=== PATIENT | female | born 1970 | race Caucasian/White ===

== ENCOUNTER 2021-03-26 12:50 | Emergency (ER) | payer OTHER ==
[~2021-03-26] VITALS: Ht 175.3 cm; Wt 99.3 kg
[2021-03-26 12:59] VITALS: BP 112/83
[2021-03-26] MEDS ORDERED: SODIUM CHLORIDE FLUSH 10 ML SYR IVF STA (13:54)
[2021-03-26 14:26] LABS: BASOPHILS # (AUTO) 0.1 K/uL (0.00-0.22); BASOPHILS % (AUTO) 0.8 % (0.0-2.0); EOSINOPHILS # (AUTO) 0.1 K/uL (0-0.4); EOSINOPHILS % (AUTO) 0.9 % (0.0-4.0); HEMATOCRIT 40.1 % (36-48); HEMOGLOBIN 13.4 g/dL (12.0-16.0); LYMPHOCYTES # (AUTO) 2.3 K/uL (2.5-16.5); LYMPHOCYTES % (AUTO) 15.5 % (20.5-51.1); MEAN CORPUSCULAR HEMOGLOBIN 30 pg (27-31); MEAN CORPUSCULAR HGB CONC 33 g/dL (33-37); MEAN CORPUSCULAR VOLUME 88.8 fL (80-94); MONOCYTES # (AUTO) 0.9 K/uL (0.8-1.0); MONOCYTES % (AUTO) 6.4 % (1.7-9.3); NEUTROPHILS # (AUTO) 11.1 K/uL (1.8-7.7); NEUTROPHILS % (AUTO) 76.4 % (42.2-75.2); PLATELET COUNT (AUTO) 298 K/uL (140-450); RED BLOOD CELL COUNT(AUTO) 4.52 MIL/uL (4.20-5.40); RED CELL DISTRIBUTION WIDTH 13.3 % (11.6-13.7); WHITE BLOOD COUNT (AUTO) 14.6 K/uL (4.8-10.8)
[2021-03-26 14:30] LABS: APPEARANCE,URINE CLEAR (CLEAR); BILIRUBIN,URINE NEGATIVE (NEGATIVE); BLOOD, URINE NEGATIVE (NEGATIVE); COLOR,URINE YELLOW (YELLOW); LEUKOCYTE ESTERASE ,URINE NEGATIVE (NEGATIVE); NITRITE, URINE NEGATIVE (NEGATIVE); UGLUCOSE NEGATIVE (NEGATIVE)
--- NOTE | 2021-03-26 14:31 | NUR ---
ERMD AT BEDSIDE EXAMINING PT
[2021-03-26 14:44] LABS: ALBUMIN 3.6 g/dL (3.4-5.0); ANION GAP 12.7 (8-16); CARBON DIOXIDE 25.4 mmol/L (21-32); CREATININE 0.8 mg/dL (0.6-1.3); POTASSIUM 4.1 mmol/L (3.5-5.1); TOTAL BILIRUBIN 0.5 mg/dL (0.0-1.0)
--- NOTE | 2021-03-26 14:54 | NUR ---
CONSENT FOR ABDOMINAL CT WITH CONTRAST HAS BEEN OBTAINED
--- NOTE | 2021-03-26 15:24 | NUR ---
50YO F PRESENTS TO ED WITH 10/10 LOWER ABDOMINAL PAIN X 3 DAYS. LBM TODAY. ALSO REPORTS N/V X 1 DAY. DENIES URINARY PROBLEMS. TOOK TYLENOL AT 2AM. PMH: OVARIAN CYST- 2009, ANXIETY MEDS: CELEXA, CONTROL PILLS NKA Addendum: 03/26/21 at 1533 by [email or web address] ALLERGIES: SHRIMP AND LATEX
--- NOTE | 2021-03-26 15:25 | NUR ---
MULTIPLE IV ATTEMPTS MADE ON PT. MADE AWARE. STATED WILL PERFORM US BEDSIDE TO OBTAIN IV
--- NOTE | 2021-03-26 15:29 | NUR ---
BEDSIDE ATTEMPING TO GET IV ON PT WITH US
--- NOTE | 2021-03-26 16:32 | NUR ---
central line set up at bed side with size 7 gloves, ermd notified.
[2021-03-26] MEDS ORDERED: MORPHINE SULFATE 4 MG/ML SYR IM ONE (17:00)
--- NOTE | 2021-03-26 18:16 | NUR ---
patient taken to ct via w/c
--- NOTE | 2021-03-26 18:29 | NUR ---
PT RETURNED TO BEDSIDE FROM CT VIA W/C
[2021-03-26] MEDS ORDERED: ACETAMINOPHEN 325 MG TAB PO ONE (19:00)
--- NOTE | 2021-03-26 19:12 | NUR ---
Report received from EDILBERTO Mccarthy for continuation of care.
--- NOTE | 2021-03-26 19:13 | NUR ---
Pt report given to EDILBERTO HARRIS. Transfer of care at this time.
[2021-03-26] MEDS ORDERED: AMOX1TAB8 PO (19:17)
[2021-03-26] MEDS ORDERED: AMOXIL/CLAVULANATE 875/125 MG 1 TAB PO ONE ×2 (19:45→20:05)
--- NOTE | 2021-03-26 20:10 | NUR ---
Patient sitting in bed locked in lowest position, x1 siderail up. Patient denies any pain or nausea at this time. Breathing even and unlabored. NAD noted.
[2021-03-26 20:18] VITALS: BP 116/71
--- NOTE | 2021-03-26 20:18 | NUR ---
Patient discharged with v/s stable. Written and verbal after care instructions given and explained. Patient alert, oriented and verbalized understanding of instructions. Ambulatory with steady gait. All questions addressed prior to discharge. ID band removed. Patient advised to follow up with PMD. Rx of Amoxicillin/Potassium Clav given. Patient educated on indication of medication including possible reaction and side effects. Opportunity to ask questions provided and answered.
== END 2021-03-26 20:18 | disposition home or self-care (01) ==
LOC: MED 12:50
DX: K57.92 Diverticulitis of intestine, part unspecified, without perforation or abscess without bleeding (principal); Z79.899 Other long term (current) drug therapy; Z91.013 Allergy to seafood; Z91.040 Latex allergy status; Z98.890 Other specified postprocedural states
CPT/HCPCS: 36415; 36569; 74177; 80053; 81003; 81025; 83615; 85025; 99285; Q9967